=== PATIENT | male | born 1945 | race Caucasian/White ===

== ENCOUNTER 2022-06-12 10:22 | Inpatient (IN) | payer MEDICARE ==
[~2022-06-12] VITALS: Ht 175.3 cm; Wt 72.0 kg
[2022-06-12] MEDS ORDERED: ASPI-1450 PO (10:25)
[2022-06-12] MEDS ORDERED: LISI-894 PO (10:25)
[2022-06-12] MEDS ORDERED: MECL-134 PO (10:25)
[2022-06-12] MEDS ORDERED: TERA2CAP10 PO (10:25)
[2022-06-12] MEDS ORDERED: ATOR40TA28 PO (10:25)
[2022-06-12 12:35] LABS: BASOPHILS % (AUTO) 0.3 % (0.0-2.0); EOSINOPHILS % (AUTO) 1.6 % (1.0-6.0); HEMATOCRIT 39.2 % (41-53); LYMPHOCYTES # (AUTO) 1.5 K/uL (1.0-4.8); LYMPHOCYTES % (AUTO) 23.7 % (22.0-44.0); MEAN CORPUSCULAR HEMOGLOBIN 30.9 pg (26.0-34.0); MEAN CORPUSCULAR HGB CONC 33.2 G/dL (31.0-37.0); MEAN CORPUSCULAR VOLUME 93 fL (80-100); MONOCYTES # (AUTO) 0.6 K/uL (0.1-1.0); MONOCYTES % (AUTO) 9.8 % (2.0-9.0); NEUTROPHILS % (AUTO) 64.6 % (40.0-70.0); PLATELET COUNT (AUTO) 186 K/uL (150-450); RED CELL DISTRIBUTION WIDTH 14.1 % (11.5-14.5)
[2022-06-12 12:48] LABS: ANION GAP 7 mmol/L (8-16); CARBON DIOXIDE 28 mmol/L (22-29); CHLORIDE 107 mmol/L (98-107); GLOMERULAR FILTR. RATE CALC > 60 mL/min (>60); GLUCOSE,RANDOM 96 mg/dL (70-110); POTASSIUM 3.9 mmol/L (3.5-5.1); SODIUM SERUM 142 mmol/L (136-145); UREA NITROGEN, BLOOD 13 mg/dL (7-18)
[2022-06-12 12:51] LABS: C-REACTIVE PROTEIN QUANT 0.19 mg/dL (0.00-0.30)
[2022-06-12 12:58] LABS: PROTHROMBIN TIME 10.9 SEC (9.4-11.6)
[2022-06-12 13:41] LABS: ERYTHROCYTE SEDIMENTATION RATE 15 MM/HR (0-15)
[2022-06-12 14:59] LABS: COVID AG,FIA SOURCE NASAL SWAB
[2022-06-12] MEDS ORDERED: ALBUTEROL SULFATE 2.5 MG/0.5 ML NEB SOLUTION NEB PRN (15:45)
[2022-06-12] MEDS ORDERED: BISACODYL 10 MG RECTAL RECTAL SUPPOSITORY PR PRN (15:45)
[2022-06-12] MEDS ORDERED: DOCUSATE SODIUM 100 MG CAPSULE PO PRN (15:45)
[2022-06-12] MEDS ORDERED: IPRATROPIUM BROMIDE 0.5 MG/2.5 ML NEB SOLUTION NEB PRN (15:45)
[2022-06-12] MEDS ORDERED: 0.9% SODIUM CHLORIDE 10 ML SYRINGE IVP PRN (15:45)
[2022-06-12] MEDS ORDERED: ONDANSETRON HCL 4 MG/2 ML VIAL IVP PRN (15:45)
[2022-06-12] MEDS ORDERED: ACETAMINOPHEN 325 MG TABLET PO PRN (15:45)
[2022-06-12] MEDS ORDERED: VANCOMYCIN HCL 1.5 GM in DEXTROSE 5%-WATER 250 ML IV ONE (16:00)
[2022-06-12] MEDS: CefTRIAXone 1 GM/DEXTROSE 50 ML IV SCH (16:26)
[2022-06-12] MEDS: HEPARIN SODIUM,PORCINE 5,000 UNITS/ML VIAL SQ SCH ×2 (16:27→23:47)
[2022-06-12] MEDS ORDERED: SODIUM CHLORIDE 0.9% 1,000 ML ONE (17:19)
[2022-06-12] MEDS: ATORVASTATIN CALCIUM 40 MG TABLET PO SCH (20:30)
[2022-06-12 21:51] VITALS: BP 134/60
[2022-06-13 03:41] VITALS: BP 135/64
[2022-06-13 07:32] LABS: BASOPHILS % (AUTO) 0.5 % (0.0-2.0); EOSINOPHILS % (AUTO) 2.9 % (1.0-6.0); HEMATOCRIT 38.7 % (41-53); HEMOGLOBIN 12.9 g/dL (13.5-17.5); LYMPHOCYTES # (AUTO) 1.5 K/uL (1.0-4.8); MEAN CORPUSCULAR HGB CONC 33.4 G/dL (31.0-37.0); MEAN CORPUSCULAR VOLUME 93 fL (80-100); MONOCYTES # (AUTO) 0.6 K/uL (0.1-1.0); MONOCYTES % (AUTO) 10.4 % (2.0-9.0); NEUTROPHILS # (AUTO) 3.4 K/uL (1.8-7.7); NEUTROPHILS % (AUTO) 60.2 % (40.0-70.0); PLATELET COUNT (AUTO) 182 K/uL (150-450); RED BLOOD CELL COUNT(AUTO) 4.17 MIL/uL (4.50-5.90)
[2022-06-13 07:51] LABS: ALANINE AMINOTRANSFERASE 19 U/L (12-78); ALBUMIN 3.5 g/dL (3.4-5.0); ALKALINE PHOSPHATASE 103 U/L (46-116); ANION GAP 8 mmol/L (8-16); ASPARTATE AMINOTRANSFERASE 20 U/L (15-37); BILIRUBIN,TOTAL 0.4 mg/dL (0.1-1.0); CALCIUM, TOTAL 8.7 mg/dL (8.8-10.5); CARBON DIOXIDE 27 mmol/L (22-29); CHLORIDE 106 mmol/L (98-107); CREATININE 0.65 mg/dL (0.60-1.30); GLOMERULAR FILTR. RATE CALC > 60 mL/min (>60); GLUCOSE,RANDOM 100 mg/dL (70-110); POTASSIUM 3.7 mmol/L (3.5-5.1); SODIUM SERUM 141 mmol/L (136-145); TOTAL PROTEIN, SERUM 6.6 g/dL (6.4-8.2); UREA NITROGEN, BLOOD 10 mg/dL (7-18)
[2022-06-13] MEDS: HEPARIN SODIUM,PORCINE 5,000 UNITS/ML VIAL SQ SCH ×3 (08:00→23:07)
[2022-06-13 08:06] VITALS: BP 135/69
[2022-06-13] MEDS: VANCOMYCIN HCL 750 MG in DEXTROSE 5%-WATER 250 ML IV SCH ×2 (08:10→19:49)
[2022-06-13] MEDS: LISINOPRIL 20 MG TABLET PO SCH (08:29)
[2022-06-13] MEDS: MECLIZINE HCL 25 MG TABLET PO SCH (08:29)
[2022-06-13] MEDS: TERAZOSIN HCL 2 MG CAPSULE PO SCH (08:29)
[2022-06-13] MEDS ORDERED: RINGERS SOLUTION,LACTATED 1,000 ML IV ONE ×2 (10:06→12:00)
[2022-06-13] MEDS ORDERED: FentaNYL CITRATE PF 100 MCG/2 ML VIAL IVP ONE (12:00)
[2022-06-13] MEDS ORDERED: LIDOCAINE/PF 2% 5 ML VIAL IM ONE (12:00)
[2022-06-13] MEDS ORDERED: PROPOFOL 1% 20 ML VIAL IVP ONE (12:00)
[2022-06-13] MEDS ORDERED: LIDOCAINE 1%/EPI 1:200,000/PF 30 ML VIAL ONE (12:11)
[2022-06-13] MEDS ORDERED: BUPIVACAINE HCL/PF 0.5% 30 ML VIAL ONE (12:11)
[2022-06-13] MEDS ORDERED: LIDOCAINE/PF 1% 30 ML VIAL ONE (12:13)
[2022-06-13] MEDS ORDERED: SODIUM CHLORIDE 0.9% 1,000 ML ONE (12:13)
[2022-06-13] MEDS ORDERED: VANCOMYCIN HCL 1 GM/VIAL ONE (12:13)
[2022-06-13] MEDS: CefTRIAXone 1 GM/DEXTROSE 50 ML IV SCH (15:15)
[2022-06-13 15:17] VITALS: BP 123/60
[2022-06-13] MEDS: ATORVASTATIN CALCIUM 40 MG TABLET PO SCH (19:49)
[2022-06-13 19:54] VITALS: BP 123/59
[2022-06-14 04:00] VITALS: BP_SYST 161; BP_SYST 177; BP_DIAS 72; BP_DIAS 99
[2022-06-14 06:00] VITALS: BP 124/69
[2022-06-14 07:21] LABS: BASOPHILS % (AUTO) 0.3 % (0.0-2.0); EOSINOPHILS % (AUTO) 1.9 % (1.0-6.0); HEMATOCRIT 38.9 % (41-53); LYMPHOCYTES # (AUTO) 1.8 K/uL (1.0-4.8); LYMPHOCYTES % (AUTO) 29.7 % (22.0-44.0); MEAN CORPUSCULAR HGB CONC 33.5 G/dL (31.0-37.0); MEAN CORPUSCULAR VOLUME 93 fL (80-100); MONOCYTES # (AUTO) 0.6 K/uL (0.1-1.0); MONOCYTES % (AUTO) 9.8 % (2.0-9.0); NEUTROPHILS # (AUTO) 3.6 K/uL (1.8-7.7); NEUTROPHILS % (AUTO) 58.3 % (40.0-70.0); PLATELET COUNT (AUTO) 182 K/uL (150-450); RED CELL DISTRIBUTION WIDTH 14.1 % (11.5-14.5)
[2022-06-14 07:30] LABS: ANION GAP 6 mmol/L (8-16); CALCIUM, TOTAL 8.7 mg/dL (8.8-10.5); CARBON DIOXIDE 28 mmol/L (22-29); CHLORIDE 106 mmol/L (98-107); CREATININE 0.69 mg/dL (0.60-1.30); GLOMERULAR FILTR. RATE CALC > 60 mL/min (>60); GLUCOSE,RANDOM 99 mg/dL (70-110); POTASSIUM 3.9 mmol/L (3.5-5.1); SODIUM SERUM 140 mmol/L (136-145); UREA NITROGEN, BLOOD 11 mg/dL (7-18); VANCOMYCIN,RANDOM 7.1 mcg/mL (25.0-50.0)
[2022-06-14 07:41] VITALS: BP 140/66
[2022-06-14] MEDS: MECLIZINE HCL 25 MG TABLET PO SCH (08:08)
[2022-06-14] MEDS: LISINOPRIL 20 MG TABLET PO SCH (08:08)
[2022-06-14] MEDS: TERAZOSIN HCL 2 MG CAPSULE PO SCH (08:09)
[2022-06-14] MEDS: HEPARIN SODIUM,PORCINE 5,000 UNITS/ML VIAL SQ SCH ×3 (08:11→23:52)
[2022-06-14] MEDS: VANCOMYCIN HCL 750 MG in DEXTROSE 5%-WATER 250 ML IV SCH ×3 (08:11→23:52)
[2022-06-14 15:21] VITALS: BP 120/65
[2022-06-14] MEDS: CefTRIAXone 1 GM/DEXTROSE 50 ML IV SCH (15:50)
[2022-06-14] MEDS: ATORVASTATIN CALCIUM 40 MG TABLET PO SCH (21:04)
[2022-06-14 21:17] VITALS: BP 129/67
[2022-06-15 03:29] VITALS: BP 124/74
[2022-06-15 07:57] LABS: ANION GAP 5 mmol/L (8-16); CALCIUM, TOTAL 8.4 mg/dL (8.8-10.5); CARBON DIOXIDE 29 mmol/L (22-29); CHLORIDE 106 mmol/L (98-107); CREATININE 0.69 mg/dL (0.60-1.30); GLOMERULAR FILTR. RATE CALC > 60 mL/min (>60); GLUCOSE,RANDOM 101 mg/dL (70-110); POTASSIUM 3.9 mmol/L (3.5-5.1); SODIUM SERUM 140 mmol/L (136-145); UREA NITROGEN, BLOOD 11 mg/dL (7-18)
[2022-06-15 08:36] VITALS: BP 153/76
[2022-06-15] MEDS: LISINOPRIL 20 MG TABLET PO SCH (08:37)
[2022-06-15] MEDS: MECLIZINE HCL 25 MG TABLET PO SCH (08:37)
[2022-06-15] MEDS: VANCOMYCIN HCL 750 MG in DEXTROSE 5%-WATER 250 ML IV SCH ×2 (08:38→15:57)
[2022-06-15] MEDS: HEPARIN SODIUM,PORCINE 5,000 UNITS/ML VIAL SQ SCH ×2 (08:38→15:56)
[2022-06-15] MEDS: TERAZOSIN HCL 2 MG CAPSULE PO SCH (08:39)
[2022-06-15] MEDS ORDERED: AMOX1TAB16 PO (11:13)
[2022-06-15] MEDS: CefTRIAXone 1 GM/DEXTROSE 50 ML IV SCH (15:21)
[2022-06-15 17:21] VITALS: BP 115/61
== END 2022-06-15 17:30 | disposition home or self-care (01) | DRG 575 ==
LOC: EMS 10:29 → 6S 16:17
PROVIDERS: ADMIT Internal Medicine; ATTEND Internal Medicine
PROC: 0HRNXJZ Replacement of Left Foot Skin with Synthetic Substitute, External Approach (ICD-10-PCS; principal; 2022-06-12)
PROC: 0JBQ0ZZ Excision of Right Foot Subcutaneous Tissue and Fascia, Open Approach (ICD-10-PCS; 2022-06-12)
DX: L97.519 Non-pressure chronic ulcer of other part of right foot with unspecified severity (principal); Z20.822 Contact with and (suspected) exposure to COVID-19; N40.0 Benign prostatic hyperplasia without lower urinary tract symptoms; E78.5 Hyperlipidemia, unspecified; I11.9 Hypertensive heart disease without heart failure; Z79.899 Other long term (current) drug therapy; Z79.82 Long term (current) use of aspirin
CPT/HCPCS: 80048; 80053; 80202; 85025; 85610; 85651; 85730; 86140; 86850; 86900; 86901; 87081; 88304; 93925; 97165; 97535; 99285; G0238; J0696; J1644; J2704; J3010; J3370; J3490; J7030; J7060; J7120